=== PATIENT | female | born 1990 ===

== ENCOUNTER 2024-10-01 15:16 | Outpatient (CLI) | payer OTHER | END 2024-10-01 15:17 | disposition home or self-care (01) | LOC: PRENATAL 15:16 | PROVIDERS: ATTEND Obstetrics & Gynecology Maternal & Fetal Medicine | DX: O44.00 Complete placenta previa NOS or without hemorrhage, unspecified trimester (principal); O99.280 Endocrine, nutritional and metabolic diseases complicating pregnancy, unspecified trimester; O09.529 Supervision of elderly multigravida, unspecified trimester; O09.219 Supervision of pregnancy with history of pre-term labor, unspecified trimester; Z14.8 Genetic carrier of other disease; Z3A.19 19 weeks gestation of pregnancy ==

== ENCOUNTER 2024-12-04 12:19 | Outpatient (CLI) | payer OTHER | END 2024-12-04 12:20 | disposition home or self-care (01) | LOC: PRENATAL 12:19 | PROVIDERS: ATTEND Obstetrics & Gynecology Maternal & Fetal Medicine | DX: O26.849 Uterine size-date discrepancy, unspecified trimester (principal); O99.280 Endocrine, nutritional and metabolic diseases complicating pregnancy, unspecified trimester; O09.529 Supervision of elderly multigravida, unspecified trimester; O09.219 Supervision of pregnancy with history of pre-term labor, unspecified trimester; Z14.8 Genetic carrier of other disease; Z3A.29 29 weeks gestation of pregnancy ==

== ENCOUNTER 2025-01-14 13:01 | Outpatient (CLI) | payer OTHER | END 2025-01-14 13:02 | disposition home or self-care (01) | LOC: PRENATAL 13:01 | PROVIDERS: ATTEND Obstetrics & Gynecology Maternal & Fetal Medicine | DX: O26.849 Uterine size-date discrepancy, unspecified trimester (principal); O36.8199 Decreased fetal movements, unspecified trimester, other fetus; O99.280 Endocrine, nutritional and metabolic diseases complicating pregnancy, unspecified trimester; O09.529 Supervision of elderly multigravida, unspecified trimester; O09.219 Supervision of pregnancy with history of pre-term labor, unspecified trimester; Z14.8 Genetic carrier of other disease; O99.019 Anemia complicating pregnancy, unspecified trimester; Z3A.34 34 weeks gestation of pregnancy ==